=== PATIENT | male | born 1950 | race Native Hawaiian/Other Pacific Islander ===

== ENCOUNTER 2017-07-05 08:26 | Outpatient (CLI) | payer OTHER ==
[~2017-07-05 08:26] MED LIST: AMBIEN5 MG PO; ATOR20TA2 PO; BAYER ASPIRIN E81 MG PO; GLIP10TA55 PO; LISI20TA11 PO; LORCET HD 10-321 TAB PO; METF500T PO; NEFAZODONE150 MG PO; TAMS0.4C PO
== END 2017-07-05 09:45 | disposition home or self-care (01) ==
LOC: RESP 08:26
DX: R06.02 Shortness of breath (principal)
CPT/HCPCS: 94640; 94664

== ENCOUNTER 2018-02-21 09:09 | Outpatient (CLI) | payer OTHER | END 2018-02-21 19:16 | disposition home or self-care (01) | LOC: CT 09:09 | DX: J32.4 Chronic pansinusitis (principal) ==

== ENCOUNTER 2018-04-02 10:16 | Outpatient (CLI) | payer OTHER | END 2018-04-02 19:06 | disposition home or self-care (01) | LOC: MRI 10:16 | DX: M96.1 Postlaminectomy syndrome, not elsewhere classified (principal); M54.5 Low back pain; M54.2 Cervicalgia; M54.12 Radiculopathy, cervical region; M54.16 Radiculopathy, lumbar region ==

== ENCOUNTER 2018-05-15 15:57 | Outpatient (CLI) | payer OTHER | END 2018-05-15 19:33 | disposition home or self-care (01) | LOC: RESP 15:57 | DX: G60.8 Other hereditary and idiopathic neuropathies (principal) | CPT/HCPCS: 95885; 95909 ==

== ENCOUNTER 2018-06-17 10:33 | Outpatient (CLI) | payer OTHER ==
[~2018-06-17] VITALS: Ht 167.6 cm; Wt 104.1 kg
== END 2018-06-17 23:29 | disposition home or self-care (01) ==
LOC: INF 10:33 → MRI 10:33 → INF 23:29
DX: M54.12 Radiculopathy, cervical region (principal); M54.16 Radiculopathy, lumbar region; D50.9 Iron deficiency anemia, unspecified
CPT/HCPCS: 96365; J1439

== ENCOUNTER 2018-06-21 10:21 | Outpatient (CLI) | payer OTHER | END 2018-06-21 19:06 | disposition home or self-care (01) | LOC: MRI 10:21 | DX: M54.12 Radiculopathy, cervical region (principal) ==

== ENCOUNTER 2018-06-26 09:23 | Outpatient (CLI) | payer OTHER ==
[~2018-06-26] VITALS: Ht 172.7 cm; Wt 103.9 kg
== END 2018-06-26 20:14 | disposition home or self-care (01) ==
LOC: INF 09:23
DX: D50.9 Iron deficiency anemia, unspecified (principal)
CPT/HCPCS: 96365; J1439

== ENCOUNTER 2018-07-09 09:03 | Outpatient (CLI) | payer OTHER | END 2018-07-09 22:39 | disposition home or self-care (01) | LOC: CT 09:03 | DX: R19.00 Intra-abdominal and pelvic swelling, mass and lump, unspecified site (principal) | CPT/HCPCS: 36415; 82565; 84520; Q9963 ==

== ENCOUNTER 2018-07-26 10:26 | Outpatient (CLI) | payer OTHER | END 2018-07-26 21:48 | disposition home or self-care (01) | LOC: CT 10:26 | DX: J44.9 Chronic obstructive pulmonary disease, unspecified (principal) | CPT/HCPCS: Q9963 ==

== ENCOUNTER 2018-10-22 13:51 | Outpatient (CLI) | payer OTHER | END 2018-10-22 20:46 | disposition home or self-care (01) | LOC: LAB 13:51 | DX: F44.5 Conversion disorder with seizures or convulsions (principal) | CPT/HCPCS: 83605 ==

== ENCOUNTER 2018-11-25 09:34 | Outpatient (CLI) | payer OTHER | END 2018-11-25 21:50 | disposition home or self-care (01) | LOC: CT 09:34 | DX: F44.5 Conversion disorder with seizures or convulsions (principal); G31.89 Other specified degenerative diseases of nervous system; G45.8 Other transient cerebral ischemic attacks and related syndromes ==

== ENCOUNTER 2019-04-21 15:31 | Outpatient (CLI) | payer OTHER | END 2019-04-22 05:56 | disposition home or self-care (01) | LOC: LAB 15:31 | DX: R07.89 Other chest pain (principal) | CPT/HCPCS: 84484 ==

== ENCOUNTER 2019-05-08 16:16 | Outpatient (CLI) | payer OTHER | END 2019-05-08 23:59 | disposition home or self-care (01) | LOC: RAD 16:16 | DX: S20.212A Contusion of left front wall of thorax, initial encounter (principal) ==

== ENCOUNTER 2019-08-20 17:09 | Outpatient (CLI) | payer OTHER ==
[2019-08-20 17:31] LABS: PLATELET COUNT 205 K/uL (142-355)
== END 2019-08-20 22:31 | disposition home or self-care (01) ==
LOC: LABW 17:09
PROVIDERS: Orthopaedic Surgery
DX: M25.50 Pain in unspecified joint (principal)
CPT/HCPCS: 36415; 85027; 85651; 86140

== ENCOUNTER 2019-09-14 12:27 | Emergency (ER) | payer OTHER ==
[~2019-09-14] VITALS: Ht 172.7 cm; Wt 103.9 kg
[2019-09-14 12:35] VITALS: TEMP 98.1
[2019-09-14 13:50] VITALS: BP 112/81
== END 2019-09-14 14:00 | disposition home or self-care (01) ==
LOC: ED 12:27
PROC: 0HQ1XZZ Repair Face Skin, External Approach (ICD-10-PCS; principal; 2019-09-14)
DX: S01.111A Laceration without foreign body of right eyelid and periocular area, initial encounter (principal); W01.0XXA Fall on same level from slipping, tripping and stumbling without subsequent striking against object, initial encounter; Y92.511 Restaurant or cafe as the place of occurrence of the external cause
CPT/HCPCS: 96372; 99283; J1885

== ENCOUNTER 2019-09-22 16:12 | Outpatient (CLI) | payer OTHER | END 2019-09-22 21:34 | disposition home or self-care (01) | LOC: RAD 16:12 | DX: M25.562 Pain in left knee (principal) ==

== ENCOUNTER 2019-12-25 11:13 | Outpatient (CLI) | payer OTHER | END 2019-12-25 23:06 | disposition home or self-care (01) | LOC: RAD 11:13 | DX: Z13.820 Encounter for screening for osteoporosis (principal); M54.89 Other dorsalgia; M25.50 Pain in unspecified joint; I10 Essential (primary) hypertension; E11.9 Type 2 diabetes mellitus without complications; C61 Malignant neoplasm of prostate; Z79.899 Other long term (current) drug therapy ==

== ENCOUNTER 2020-03-09 15:00 | Outpatient (CLI) | payer OTHER | END 2020-03-09 20:08 | disposition home or self-care (01) | LOC: RAD 15:00 | DX: J44.9 Chronic obstructive pulmonary disease, unspecified (principal) ==

== ENCOUNTER 2020-04-13 15:16 | Outpatient (CLI) | payer OTHER | END 2020-04-13 19:22 | disposition home or self-care (01) | LOC: CT 15:16 | DX: R47.81 Slurred speech (principal) ==

== ENCOUNTER 2020-04-22 13:06 | Outpatient (CLI) | payer OTHER | END 2020-04-22 19:32 | disposition home or self-care (01) | LOC: CT 13:06 | DX: R93.89 Abnormal findings on diagnostic imaging of other specified body structures (principal) ==

== ENCOUNTER 2020-07-20 17:05 | Outpatient (CLI) | payer OTHER | END 2020-07-20 20:04 | disposition home or self-care (01) | LOC: LABW 17:05 | DX: D64.9 Anemia, unspecified (principal) | CPT/HCPCS: 36415; 82728 ==

== ENCOUNTER 2020-12-08 10:46 | Outpatient (CLI) | payer OTHER ==
[2020-12-08] MEDS ORDERED: OMEP40CA PO ×2 (19:19→19:25)
[2020-12-08] MEDS ORDERED: TRAZODONE HYDR100 MG PO (19:30)
[2020-12-08] MEDS ORDERED: ROSUVASTATIN CA40 MG PO (19:31)
[2020-12-08] MEDS ORDERED: MYRBETRIQ50 MG PO (19:32)
[2020-12-08] MEDS ORDERED: GLIP10TA55 PO (19:35)
[2020-12-08] MEDS ORDERED: CYPROHEPTADINE H4 MG PO (19:37)
[2020-12-08] MEDS ORDERED: B-121000 MC4 PO (19:38)
[2020-12-08] MEDS ORDERED: VENLAFAXINE HY150 MG PO (19:40)
== END 2020-12-08 22:12 | disposition home or self-care (01) ==
LOC: LABW 10:46
PROVIDERS: ATTEND Nurse Practitioner Family
DX: R80.9 Proteinuria, unspecified (principal)
CPT/HCPCS: 84156

== ENCOUNTER 2020-12-08 16:40 | Observation (INO) | payer OTHER ==
[~2020-12-08] VITALS: Ht 172.7 cm; Wt 92.2 kg
[2020-12-08] MEDS ORDERED: OMEP40CA PO ×2 (19:19→19:25)
[2020-12-08 19:22] LABS: PLATELET COUNT 176 K/uL (142-355)
[2020-12-08] MEDS ORDERED: TRAZODONE HYDR100 MG PO (19:30)
[2020-12-08] MEDS ORDERED: ROSUVASTATIN CA40 MG PO (19:31)
[2020-12-08] MEDS ORDERED: MYRBETRIQ50 MG PO (19:32)
[2020-12-08 19:35] LABS: POTASSIUM 4.5 mmol/L (3.6-5.2)
[2020-12-08] MEDS ORDERED: GLIP10TA55 PO (19:35)
[2020-12-08] MEDS ORDERED: CYPROHEPTADINE H4 MG PO (19:37)
[2020-12-08] MEDS ORDERED: B-121000 MC4 PO (19:38)
[2020-12-08] MEDS ORDERED: VENLAFAXINE HY150 MG PO (19:40)
--- NOTE | 2020-12-08 19:51 | NUR ---
PT WAS ASSESSED. PT REQUESTED FOR IV TO BE RESTARTED. PT TO HAVE KUB DONE THIS PM.
[2020-12-08 20:00] VITALS: BP 112/71; TEMP 98.6
[2020-12-08 20:23] VITALS: BP 112/71; TEMP 98.6
[2020-12-08 20:34] VITALS: BP 112/71; TEMP 98.6; Ht 172.7 cm; Wt 92.2 kg
--- NOTE | 2020-12-08 21:00 | NUR ---
BACK FROM XRAY.
--- NOTE | 2020-12-08 22:02 | NUR ---
COMPLAINTS OF FEELING NAUSEATED.
--- NOTE | 2020-12-08 22:30 | NUR ---
PT ASKED FOR IV TO LEFT ANTECUBITAL TO BE REMOVED. IV WAS REMOVED WITH TIP INTACT. SITE IS WITHOUT REDNESS OR EDEMA. PT DENIES ANY PAIN OR DISCOMFORT. PT IS RECEIVING NS 500ML BOLUS ORDERED. PT REQUESTED PM MEDICATIONS HE TAKES AT HOME. PT WAS GIVEN PM MEDS FROM HIS OWN HOME MEDICATION. HOME MEDICATIONS HAVE NOT BEEN REVIEWED BY DOCTOR. BLOOD SUGAR IS 150. PT TAKES METFORMIN AND GLIPAZIDE AT HS.
[2020-12-09] VITALS: BP 127/73; TEMP 98.6
--- NOTE | 2020-12-09 02:28 | NUR ---
RN SHAYLEE YE INFORMED DR. CLEMONS OF PT'S LABS. ELEVATED LIPASE AND AMYLASE. NO NEW ORDERS WERE RECEIVED. THIS WAS DONE AROUND 2100PM ON 12/09/2020. PT HAS NOT ATE ANYTHING SINCE ADMISSION. PT ONLY HAD SIPS OF WATER WITH HIS PM MEDICATIONS. INSTRUCTED PT TO CALL FOR ANY ASSISTANCE. LUIS CRUZ STILL NEEDED.
--- NOTE | 2020-12-09 02:30 | NUR ---
KUB RESULTS BACK. NO ABNORMALS TO REPORT TO DR. CLEMONS.
--- NOTE | 2020-12-09 02:31 | NUR ---
DR. CLEMONS MADE ROUNDS ON THIS PATIENT AT 1900PM. BHARATHI BURGER RN ASSITED WITH ROUNDING.
--- NOTE | 2020-12-09 03:27 | NUR ---
PT CONTINUES TO REST. NS INFUSING AT 83 ML/HR VIA INFUSION PUMP.
[2020-12-09 04:00] VITALS: BP 95/60; TEMP 98.1
[2020-12-09 04:27] LABS: PLATELET COUNT 133 K/uL (142-355)
[2020-12-09 04:52] LABS: POTASSIUM 3.6 mmol/L (3.6-5.2)
--- NOTE | 2020-12-09 05:42 | NUR ---
URINE WAS COLLECTED AND SENT TO LAB. URINE IS DARK TEA COLORED.
--- NOTE | 2020-12-09 07:41 | NUR ---
ON ROUNDING THIS MORNING PATIENT IS STANDING UP NEXT TO THE BED AFTER COMING BACK FROM THE BATHROOM. PATIENT STATED HE HAS A LARGE BOWEL MOVEMENT. SHIFT ASSESSMENT COMPLETED AT THIS TIME. PATIENT DID REPORT ON PALPATION TO HIS RUQ/EPIGASTRIC REGION SOME TENDERNESS OTHERWISE NO OTHER COMPLAINS VOICED. PATIENT REPORTS NO NAUSEA OR VOMITING SINCE LAST NIGHT. IV 22G TO THE LEFT HAND IS PATENT AND INTACT INFUSING NS AT 83ML/HR. NO SIGNS OF INFILTRATION NOTED. BED LOCKED IN LOW POSITION, CALL GASPAR WITHIN REACH.
[2020-12-09 08:00] VITALS: BP 124/69; TEMP 98.2
[2020-12-09 12:00] VITALS: BP 125/74; TEMP 98.6
--- NOTE | 2020-12-09 12:40 | NUR ---
PATIENT GIVEN DISCHARGE INSTRUCTIONS WITH VERBAL UNDERSTANDING NOTED. PATIENT GIVEN EDUCATION ON SENNA AND ZOFRAN. PATIENT INSTRUCTED TO CLAIMS ADJUSTER CROP NEW RX AT [facility]. PATIENT EDUCATED ON INCREASING FLUID INTAKE AND WHICH FOODS TO EAT TO HELP WITH CONSTIPATION AND TO NOTIFY OF CONTINUATION OF ABDOMINAL PAIN AND NAUSEA. PRESENT IN THE ROOM WHEN GIVING EDUCATION. IV 22G TO THE RIGHT HAND DISCONTINUED WITH TIP INTACT AND SECURED WITH 2X2 AND SECURED WITH KOBAN. PATIENT TAKEN VIA WHEELCHAIR TO POV WITH NO ACUTE DISTRESS.
== END 2020-12-09 12:40 | disposition home or self-care (01) ==
LOC: MED/SURG 16:40
PROVIDERS: ADMIT Family Medicine; ATTEND Family Medicine
DX: E86.0 Dehydration (principal); I10 Essential (primary) hypertension; E11.9 Type 2 diabetes mellitus without complications; E78.00 Pure hypercholesterolemia, unspecified; R80.9 Proteinuria, unspecified
CPT/HCPCS: 36415; 80053; 81000; 82150; 82948; 83690; 83735; 84100; 84156; 84443; 85027; 87635; 96360; 96361; 96365; 99220; G0378; G0379; U0003